=== PATIENT | male | born 1945 | race Caucasian/White ===

== ENCOUNTER 2016-04-08 15:42 | Emergency (ER) | payer OTHER ==
[~2016-04-08] VITALS: Ht 175.3 cm; Wt 90.7 kg
--- NOTE | 2016-04-08 16:17 | ED NOSE COMPLAINT ---
History of Present Illness General Chief Complaint: Epistaxis/Nasal Foreign Body Stated Complaint: NOSE BLEED Source: patient Exam Limitations: no limitations Vital Signs & Intake/Output Vital Signs & Intake/Output Vital Signs Date Time Temp Pulse Resp B/P Pulse O2 O2 Flow FiO2 Ox Delivery Rate 04/08 1726 78 20 123/85 98 04/08 1555 97.2 80 20 132/97 95 Room Air Allergies Coded Allergies: No Known Allergies (04/08/16) Reconcile Medications Diltiazem HCl (Diltiazem 24HR ER) 120 MG CAP.ER.24H 1 CAP PO DAILY AFIB ( Reported) Levothyroxine Sodium 175 MCG TABLET 1 TAB PO DAILY THYROID (Reported) Rosuvastatin Calcium (Crestor) 10 MG TABLET 1 TAB PO DAILY CHOL (Reported) Triage Note: PRESENTS TO ED FOR EVALUATION OF EPISTAXIX. HE BEAGN EXPERIENCING THEM OVER NIGHT INTERMITTENTLY HOWEVER NOW UNABLE TO GET IT TO STOP. PT BROUGHT DIRECTLY TO ROOM 5 Triage Nurses Notes Reviewed? yes Onset: Abrupt Duration: intermittent Timing: multiple episodes today Injury Environment: home Severity: moderate Severity Numbers: 5 HPI: Patient is a 70-year-old male with a past medical history of hypothyroidism and hypertension who presents emergency room stating that for the past 10 hours patient's had acute onset of intermittent right nares nosebleed which he has tried to apply pressure with no relief of the bleeding. Denies any mechanism injury. Denies any blood per current usage. Denies any significant history of epistasis. (BASSAM SANDHU) Past History Travel History Traveled to [place] past 21 day No Medical History Any Pertinent Medical History? none Surgical History Surgical History: non-contributory Family History Hx Contributory? No (BASSAM SANDHU) Review of Systems Review of Systems Constitutional: Reports: no symptoms. EENTM: Reports: see HPI, epistaxis. Respiratory: Reports: no symptoms. Cardiovascular: Reports: no symptoms. GI: Reports: no symptoms. Genitourinary: Reports: no symptoms. Musculoskeletal: Reports: no symptoms. Skin: Reports: no symptoms. Neurological/Psychological: Reports: no symptoms. Hematologic/Endocrine: Reports: see HPI, bleeding. Immunologic/Allergic: Reports: no symptoms. All Other Systems: Reviewed and Negative (BASSAM SANDHU) Physical Exam Physical Exam General Appearance: no apparent distress, alert, comfortable Nose: dried blood (RIGHT NARES), BILATERAL NARES ARE PATENT Comments: HEENT: , extraocular motion intact, no nystagmus. Pupils equally round and reactive to light and accommodation. External auditory canal and Tympanic membranes clear. Pharynx normal. No swelling or edema. Neck: Supple, no lymphadenopathy, normal range of motion without pain or tenderness Back: Nontender, no CVA tenderness. Cardiovascular: Regular rate and rhythms no murmurs rubs or gallops, normal JVP Respiratory: Chest nontender. No respiratory distress.breath sounds clear to auscultation bilaterally Extremity: No edema, no calf tenderness to palpation, normal and equal pulses. Neuro: Alert oriented x3, motor sensory normal, Skin: No appreciable rash on exposed skin, skin is warm and dry. Psych: Mood and affect is normal, memory and judgment is normal. (BASSAM SANDHU) Progress Differential Diagnoses I considered the following diagnoses in my evaluation of the patient: [Anterior epistasis, posterior epistasis, coagulation disorder, fracture, nasal polyp] Plan of Care: Initially patient had no active bleeding noted to right nares which nares are patent I applied thrombin and gauze to the right nares with direct pressure after 15 minutes this was removed showing no reoccurrence of bleeding patient then walked on the emergency room after another 10 minutes no recurrence of bleeding has occurred. I strongly advised patient to follow up with ENT if symptoms still persist and to return to the emergency room if bleeding is uncontrolled after 10-15 minutes of direct pressure. I strongly advised and instructed patient to apply direct pressure to cease bleeding and he will comply. Patient ambulated the bernard snort noted steady gait and was asymptomatic discussed discussion plan with Initial ED EKG: none (BASSAM SANDHU) Departure Departure Disposition: HOME OR SELF CARE Condition: Stable Clinical Impression Primary Impression: Epistaxis Referrals: HUI MCCOLLUM MD (PCP/Family) ARIC MICHAEL,REGI [place] Additional Instructions: As discussed if nosebleed does REOCCUR please apply direct pressure for approximately 10-15 minutes. If bleeding still continues to return to emergency room. If you have recurrence of nose bleeds which does stop and is controlled but does CONTINUE TO recur follow up and establish a nose and throat doctor ARIC. Departure Forms: Customer Survey General Discharge Information (BASSAM SANDHU) PA/SHOPPING CENTRE MANAGER Co-Sign Statement Statement: ED Attending supervision documentation- [X] I saw and evaluated the patient. I have also reviewed all the pertinent lab results and diagnostic results. I agree with the findings and the plan of care as documented in the PA's/SHOPPING CENTRE MANAGER's documentation. [] I have reviewed the ED Record and agree with the PA's/SHOPPING CENTRE MANAGER's documentation. [] Additions or exceptions (if any) to the PAs/SHOPPING CENTRE MANAGER's note and plan are summarized below: [] (HAYDER MELISSA DO)
[2016-04-08] MEDS ORDERED: CRESTOR10 M1 PO (17:07)
[2016-04-08] MEDS ORDERED: DILTIAZEM 24HR120 MG PO (17:08)
[2016-04-08] MEDS ORDERED: LEVOTHYROXINE175 MCG PO (17:08)
[2016-04-08 17:26] VITALS: BP 123/85
== END 2016-04-08 17:27 ==
LOC: ERH 15:42
DX: R04.0 Epistaxis (principal)